=== PATIENT | female | born 1950 | race Caucasian/White ===

== ENCOUNTER 2020-09-22 14:33 | Emergency (ER) | payer OTHER, MEDICARE ==
[2020-09-22] MEDS ORDERED: CYCLOBENZAPRINE10 MG PO (16:38)
[2020-09-22] MEDS ORDERED: NAPROXEN500 MG PO (16:38)
== END 2020-09-22 17:00 | disposition home or self-care (01) ==
LOC: FER 14:33
DX: R51.9 Headache, unspecified (principal); R25.1 Tremor, unspecified; V49.50XA Passenger injured in collision with unspecified motor vehicles in traffic accident, initial encounter; Y92.410 Unspecified street and highway as the place of occurrence of the external cause; Z86.718 Personal history of other venous thrombosis and embolism
CPT/HCPCS: 70450; 72125